=== PATIENT | male | born 1950 | race Caucasian/White ===

== ENCOUNTER → 2020-07-19 | Outpatient (CLI) | payer OTHER | LOC: SJCVC 14:51 | PROVIDERS: ATTEND Internal Medicine | DX: R94.31 Abnormal electrocardiogram [ECG] [EKG] (principal); I45.10 Unspecified right bundle-branch block; I71.2 Thoracic aortic aneurysm, without rupture; R55 Syncope and collapse; F41.9 Anxiety disorder, unspecified; I45.2 Bifascicular block; I35.9 Nonrheumatic aortic valve disorder, unspecified; E78.5 Hyperlipidemia, unspecified; Z87.891 Personal history of nicotine dependence; Z79.899 Other long term (current) drug therapy ==